=== PATIENT | female | born 1985 | race Two or more races ===

== ENCOUNTER 2017-12-07 01:17 | Emergency (ER) | payer SELFPAY ==
[~2017-12-07] VITALS: Ht 157.5 cm; Wt 60.0 kg
[2017-12-07 01:32] VITALS: BP 136/76
== END 2017-12-07 02:00 | disposition left against medical advice (07) ==
LOC: ER 01:17
DX: R06.02 Shortness of breath (principal); T78.40XA Allergy, unspecified, initial encounter; Z53.21 Procedure and treatment not carried out due to patient leaving prior to being seen by health care provider